=== PATIENT | male | born 1955 | race Caucasian/White ===

== ENCOUNTER 2016-08-09 10:38 | Outpatient (CLI) | payer OTHER ==
--- NOTE | 2016-08-09 11:55 | DIAGNOSTIC IMAGING REPORT ---
PROCEDURE: US ABDOMEN ULTRASOUND-LIMITED INDICATION: PERIUMBILICAL MASS,R/O HERNIA TECHNIQUE: Mac scale and color Doppler sonographic images of the abdomen were obtained. COMPARISON: Abdominal ultrasound 02/18/[address] abdomen/pelvis 01/19/2013. FINDINGS: There is a 3.2 cm fascial defect just right of the umbilicus with bowel containing non reducible hernia. Area is quite tender according to the historiography teacher. IMPRESSION: 1. 3.2 cm bowel containing right periumbilical hernia. Recommend CT scan to exclude incarceration. 2. Results discussed with Jonathan Mcgee.
--- NOTE | 2016-08-09 11:55 | DIAGNOSTIC IMAGING REPORT ---
PROCEDURE: US ABDOMEN ULTRASOUND-LIMITED INDICATION: PERIUMBILICAL MASS,R/O HERNIA TECHNIQUE: Mac scale and color Doppler sonographic images of the abdomen were obtained. COMPARISON: Abdominal ultrasound 02/18/[address] abdomen/pelvis 01/19/2013. FINDINGS: There is a 3.2 cm fascial defect just right of the umbilicus with bowel containing non reducible hernia. Area is quite tender according to the appellate law clerk. IMPRESSION: 1. 3.2 cm bowel containing right periumbilical hernia. Recommend CT scan to exclude incarceration. 2. Results discussed with Jonathan Mcgee.
--- NOTE | 2016-08-09 13:09 | DIAGNOSTIC IMAGING REPORT ---
PROCEDURE: CT ABDOMEN WITHOUT CONTRAST INDICATION: PERIUMBILICAL MASS TECHNIQUE: Axial scans without and with Valsalva. Coronal and sagittal re-formations. COMPARISON: Abdominal ultrasound 08/09/[address] abdomen/pelvis 01/19/2013. FINDINGS: Interval progression of diastases of the rectus muscles with three adjacent fat containing periumbilical hernias (previously one hernia). Right periumbilical hernia measures 1.1 cm, midline umbilical hernia measures 2.3 cm with some stranding of the fat suggestive of possible incarceration and left periumbilical hernia measures 1.7 cm. Lung bases are clear. Heart size is normal. Cholecystectomy. Liver, pancreas, spleen and adrenal glands are normal. 3.7 cm right renal cyst. Punctate nonobstructing left renal calculus. Mild atherosclerosis of the aorta. Nonspecific bowel gas pattern. IMPRESSION: 1. Three periumbilical fat-containing umbilical hernias. In the 2.3 cm midline hernia demonstrates stranding of the fat which may represent incarceration. Consider surgical consul if clinically warranted 2. Results discussed with Jonathan Mcgee.
== END 2016-08-09 23:00 ==
LOC: US SRH 10:38
DX: K42.9 Umbilical hernia without obstruction or gangrene (principal)